=== PATIENT | female | born 1980 | race Caucasian/White ===

== ENCOUNTER 2017-06-03 16:18 | Emergency (ER) | payer SELFPAY ==
[2017-06-03] MEDS ORDERED: Naproxen 500 MG TAB ONE (17:04)
[2017-06-03] MEDS ORDERED: AMOXicillin 250 MG CAP ONE (17:04)
== END 2017-06-03 17:02 | disposition home or self-care (01) ==
LOC: MADERS 16:18
DX: K02.9 Dental caries, unspecified (principal); K04.7 Periapical abscess without sinus; F17.210 Nicotine dependence, cigarettes, uncomplicated
CPT/HCPCS: 99283

== ENCOUNTER 2018-01-15 12:28 | Emergency (ER) | payer OTHER, SELFPAY | END 2018-01-15 13:35 | disposition home or self-care (01) | LOC: MADERS 12:28 | DX: J01.00 Acute maxillary sinusitis, unspecified (principal); F17.210 Nicotine dependence, cigarettes, uncomplicated | CPT/HCPCS: 87804; 99283 ==

== ENCOUNTER 2019-02-24 09:19 | Emergency (ER) | payer OTHER ==
[~2019-02-24 09:19] MED LIST: Sterile Water Irrigation 1,000 ML BOT ONE
[2019-02-24] MEDS ORDERED: Lidocaine 1% w/Epinephrine 1:100K 20 ML VIAL ONE (09:52)
== END 2019-02-24 10:29 | disposition home or self-care (01) ==
LOC: MADERS 09:19
DX: S81.011A Laceration without foreign body, right knee, initial encounter (principal); S80.02XA Contusion of left knee, initial encounter; F17.210 Nicotine dependence, cigarettes, uncomplicated; W18.30XA Fall on same level, unspecified, initial encounter
CPT/HCPCS: 12002; A4217

== ENCOUNTER 2019-03-03 08:54 | Emergency (ER) | payer OTHER | END 2019-03-03 09:49 | disposition home or self-care (01) | LOC: MADERS 08:54 | DX: S81.011D Laceration without foreign body, right knee, subsequent encounter (principal); F17.210 Nicotine dependence, cigarettes, uncomplicated; W19.XXXA Unspecified fall, initial encounter | CPT/HCPCS: 99282 ==

== ENCOUNTER 2021-11-13 14:45 | Outpatient (CLI) | payer OTHER ==
[2021-11-13 15:33] LABS: Thyroid Stimulating Hormone 0.106 uIU/mL (0.35-4.94)
[2021-11-13 15:55] LABS: Pregnancy Test - Urine (BHCG) Negative (Negative); Pregu Control Background? CLEAR/WHITE (CLR/WHITE); Pregu Control Bar Appear? YES (CONTROL BAR); Specific Gravity 1.015 (1.002-1.036)
[2021-11-13 23:00] LABS: Free T4 (Free Thyroxine) 0.81 ng/dL (0.70-1.48)
[2021-11-14 16:34] LABS: Follicle Stimulating Hormone 10.66 mIU/mL (See Ranges); Luteinizing Hormone 9.32 mIU/mL (See Ranges)
== END 2021-11-13 14:46 | disposition home or self-care (01) ==
LOC: MADLABBHPM 14:45 → MADLAB 14:46
PROVIDERS: ATTEND Family Medicine
DX: N92.6 Irregular menstruation, unspecified (principal); R23.2 Flushing
CPT/HCPCS: 81025; 82670; 83001; 83002; 84439; 84443; 84481

== ENCOUNTER 2022-08-11 14:36 | Outpatient (CLI) | payer OTHER | END 2022-08-11 14:37 | disposition home or self-care (01) | LOC: MADLABBHPM 14:36 → MADLAB 14:37 | PROVIDERS: ATTEND Family Medicine | DX: R10.9 Unspecified abdominal pain (principal) | CPT/HCPCS: 87086 ==

== ENCOUNTER 2023-11-17 07:53 | Emergency (ER) | payer OTHER | END 2023-11-17 09:07 | disposition home or self-care (01) | LOC: MADERS 07:53 | DX: U07.1 COVID-19 (principal); F17.210 Nicotine dependence, cigarettes, uncomplicated; Z79.899 Other long term (current) drug therapy | CPT/HCPCS: 99283 ==

== ENCOUNTER 2024-05-06 10:54 | Emergency (ER) | payer OTHER | END 2024-05-06 11:49 | disposition home or self-care (01) | LOC: MADERS 10:54 | DX: K11.20 Sialoadenitis, unspecified (principal); F17.210 Nicotine dependence, cigarettes, uncomplicated | CPT/HCPCS: 99283 ==

== ENCOUNTER 2024-10-10 15:12 | Outpatient (CLI) | payer OTHER ==
[2024-10-10 16:11] LABS: Thyroid Stimulating Hormone 0.0695 uIU/mL (0.35-4.94)
[2024-10-10 22:56] LABS: Free T4 (Free Thyroxine) 0.73 ng/dL (0.70-1.48)
[2024-10-12 12:10] LABS: Thyroid Peroxidase IgG Ab 229.0 IU/mL (<25 Normal)
== END 2024-10-10 15:13 | disposition home or self-care (01) ==
LOC: MADLAB 15:12
PROVIDERS: ATTEND Internal Medicine
DX: E05.90 Thyrotoxicosis, unspecified without thyrotoxic crisis or storm (principal)
CPT/HCPCS: 36415; 84439; 84443; 84480; 86376

== ENCOUNTER 2025-03-13 17:14 | Outpatient (CLI) | payer OTHER | END 2025-03-13 17:15 | disposition home or self-care (01) | LOC: MADLAB 17:14 | PROVIDERS: ATTEND Family Medicine | DX: M25.552 Pain in left hip (principal) ==